=== PATIENT | female | born 1990 | race Hispanic/Latino ===

== ENCOUNTER 2018-11-17 09:37 | Emergency (ER) | payer SELFPAY ==
[2018-11-17 10:10] LABS: Absolute Monocytes 0.4 K/uL (0.1-1.3); Absolute Neutrophil 3.3 K/uL (1.8-8.0); Basophils % 0.4 % (0-1.3); Eosinophils % 1.7 % (0-4.4); Hematocrit 37.5 % (36.0-45.0); Lymphocytes % 34.8 % (15.3-44.8); Monocytes % 6.9 % (3.3-12.3); RBC Red Blood Cell Count 4.46 M/uL (3.86-4.86)
--- NOTE | 2018-11-17 10:20 | RAD REPORT ---
EXAM DESCRIPTION: Christopher Single View11/17/2018 10:10 am CLINICAL HISTORY: Chest pain COMPARISON: none FINDINGS: The lungs appear clear of acute infiltrate. The heart is normal size IMPRESSION: No acute abnormalities displayed
[2018-11-17 10:55] LABS: ALT/SGPT 25 U/L (12-78); AST/SGOT 22 U/L (15-37); Albumin 3.7 g/dL (3.4-5.0); Alkaline Phosphatase 80 U/L (45-117); BUN Blood Urea Nitrogen 12 mg/dL (7-18); Bicarbonate 26 mmol/L (21-32); Bilirubin Direct < 0.1 mg/dL (0-0.2); Bilirubin Total 0.4 mg/dL (0.2-1.0); Glucose Level 95 mg/dL (74-106); Potassium 3.7 mmol/L (3.5-5.1); Protein, Total 7.8 g/dL (6.4-8.2); Sodium Level 142 mmol/L (136-145); Troponin (Emerg Dept Use Only) < 0.02 ng/mL (0.0-0.045)
--- NOTE | 2018-11-17 11:24 | ER ---
Nurse's Notes [facility] Name: Joselo Zuniga Age: 28 yrs Sex: Female : 1990 Arrival Date: 11/17/2018 Time: 09:42 Bed 8 Private MD: Diagnosis: Chest pain, unspecified Presentation: 11/17 09:51 Presenting complaint: EMS states: Ems states patient was at work when she was sitting ae4 down after sweeping and had sudden onset of blurred vision, nausea, dizziness and chest pain. Transition of care: patient was not received from another setting of care. Onset of symptoms was November 17, 2018. Risk Assessment: Do you want to hurt yourself or someone else? Patient reports no desire to harm self or others. Initial Sepsis Screen: Does the patient meet any 2 criteria? No. Patient's initial sepsis screen is negative. Does the patient have a suspected source of infection? No. Patient's initial sepsis screen is negative. Care prior to arrival: 20 G to right AC, flushes and pulls blood easily. 09:51 Acuity: SHANDRA 3 ae4 09:51 Method Of Arrival: EMS: [facility] ae4 Triage Assessment: 09:45 General: Appears in no apparent distress. comfortable, obese, Behavior is cooperative, ae4 Talkative. Pain: Complains of pain in xyphoid area and mid-sternal area Pain does not radiate. EENT: No signs and/or symptoms were reported regarding the EENT system. Neuro: Level of Consciousness is awake, alert, obeys commands, Oriented to person, place, time, situation, Appropriate for age Speech is normal, Reports blurred vision Patient states she had a brief moment of nausea, blurred vision and dizziness. dizziness. Cardiovascular: Reports chest pain, nausea, shortness of breath, Heart tones S1 S2 present Patient's skin is warm and dry. Rhythm is regular. Respiratory: Airway is patent Respiratory effort is even, unlabored, Respiratory pattern is regular, symmetrical, Breath sounds are clear bilaterally. GI: Abdomen is round Bowel sounds present X 4 quads. Abd is soft and non tender X 4 quads. GI: Patient currently denies diarrhea, vomiting. : No signs and/or symptoms were reported regarding the genitourinary system. : Denies burning with urination. Derm: Skin is normal. Musculoskeletal: No signs and/or symptoms reported regarding the musculoskeletal system. 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 - Social history:: Smoking status: Patient uses tobacco products, 2.5 packs a week. - Ebola Screening: : Patient denies travel to an Ebola-affected area in the 21 days before illness onset. - Family history:: not pertinent. - Hospitalizations: : No recent hospitalization is reported. Screenin:54 Abuse screen: Denies threats or abuse. Nutritional screening: No deficits noted. ae4 Tuberculosis screening: No symptoms or risk factors identified. Fall Risk None identified. No fall in past 12 months (0 pts). No secondary diagnosis (0 pts). IV access (20 points). Ambulatory Aid- None/Bed Rest/Nurse Assist (0 pts). Gait- Normal/Bed Rest/Wheelchair (0 pts) Mental Status- Oriented to own ability (0 pts). Assessment: 10:01 Reassessment: Please see full triage assessment. Reassessment: medical technician at ae4 bedside. 10:19 Reassessment: Patient asked if safety employee from her employer was okay to enter exam ae4 room prior to allowing safety employee to enter. Patient states it is okay to allow fire safety inspector to remain in exam room. 10:55 Reassessment: Patient ambulated to restroom to urinate and provide urine sample at this ae4 time. Patient has a strong steady gait. 11:10 Reassessment: Provider at bedside discussing plan of care. ae4 11:54 Reassessment: Safety employee at bedside asked to step out while discussing discharge ae4 instructions with patient. Safety employee exited exam room and waited outside door to exam room and attempted to re-enter exam room. [employer] employee informed safety employee she is unable to enter exam room due to patient privacy. Vital Signs: 09:44 BP 152 / 91; Pulse 73; Resp 16; Temp 98(O); Pulse Ox 100% on R/A; Weight 125.19 kg (R); ae4 10:57 BP 118 / 66; Pulse 60; Resp 18; Pulse Ox 98% on R/A; ae4 ED Course: 09:42 Patient arrived in ED. rn 09:42 James Tillman MD is Attending Physician. rn 09:43 Brayan Godinez, RN is Primary Nurse. ae4 09:46 Maintain EMS IV. Dressing intact. Good blood return noted. Site clean \T\ dry. Gauge \T\ ms site: 20g. IV is intact, with good blood return, Flushed right antecubital. 09:46 front desk monitor on. Pulse ox on. NIBP on. ms 09:53 Triage completed. ae4 09:53 Arm band placed on right wrist. EKG completed in triage. Results shown to MD. ae4 09:54 Placed in gown. Bed in low position. Call light in reach. Side rails up X 1. Cardiac ae4 monitor on. Pulse ox on. NIBP on. 10:07 XRAY Chest (1 view) In Process Unspecified. EDMS 10:10 EKG done, by manager technical training. reviewed by James Tillman MD. at1 12:00 No provider procedures requiring assistance completed. IV discontinued, intact, ae4 bleeding controlled, No redness/swelling at site. Pressure dressing applied. Administered Medications: No medications were administered Outcome: 11:23 Discharge ordered by . rn 12:00 Discharged to home ambulatory, with significant other. ae4 12:00 Condition: stable 12:00 Discharge instructions given to patient, significant other, Instructed on discharge instructions, follow up and referral plans. Demonstrated understanding of instructions. 12:01 Patient left the ED. ae4 Signatures: Dispatcher [employer] EDWI Kaylan English ms, Roman, MD MD rn Gonzales, Amanda, mold shifter EKG Tat1 Brayan Godinez, RN RN ae4
--- NOTE | 2018-11-17 11:24 | EDPHYS ---
Physician Documentation [facility] Name: Joselo Zuniga Age: 28 yrs Sex: Female : 1990 Arrival Date: 11/17/2018 Time: 09:42 Bed 8 Private MD: ED Physician James Tillman HPI: 11/17 09:59 This 28 yrs old Female presents to ER via EMS with complaints of Chest Pain. rn 09:59 The patient or guardian reports chest pain that is located primarily in the substernal rn area. 10:22 The pain does not radiate. Associated signs and symptoms: The patient has no apparent rn associated signs or symptoms, Pertinent negatives: abdominal pain, diaphoresis, headache, lower extremity swelling, near syncope, palpitations, shortness of breath, syncope, vomiting. The chest pain is described as squeezing. Duration: The patient or guardian reports a single episode, that is now resolved. Modifying factors: The symptoms are alleviated by nothing. the symptoms are aggravated by nothing. Severity of pain: At its worst the pain was mild in the emergency department the pain has improved. The patient has not experienced similar symptoms in the past. REports chest pain, at work, was doing mild cleaning, denies stimulants, no family hx of early cardiac problems, no fever/cough/sob. No hx of dvt/pe, no recent trauma. Not doing anything out of the ordinary. Better now without intervention. Reports got lightheaded, no syncope, and did not feel heart race. No hx of recurrent syncope. Has not passed out in 10 years.. 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 - Social history:: Smoking status: Patient uses tobacco products, 2.5 packs a week. - Ebola Screening: : Patient denies travel to an Ebola-affected area in the 21 days before illness onset. - Family history:: not pertinent. - Hospitalizations: : No recent hospitalization is reported. ROS: 10:22 Constitutional: Negative for fever, chills, and weight loss, Eyes: Negative for injury, rn pain, redness, and discharge, Neck: Negative for injury, pain, and swelling, Cardiovascular: Negative for palpitations, and edema, Respiratory: Negative for shortness of breath, cough, wheezing, and pleuritic chest pain, Abdomen/GI: Negative for abdominal pain, nausea, vomiting, diarrhea, and constipation, MS/Extremity: Negative for injury and deformity, Skin: Negative for injury, rash, and discoloration, Neuro: Negative for headache, weakness, numbness, tingling, and seizure. Exam: 10:22 Constitutional: This is a well developed, well nourished patient who is awake, alert, rn and in no acute distress. Sitting in stretcher, legs crossed, comfortable. Head/Face: Normocephalic, atraumatic. Neck: Trachea midline, no masses palpated Cardiovascular: Regular rate and rhythm with a normal S1 and S2. No gallops, murmurs, or rubs. No JVD. No pulse deficits. Respiratory: Lungs have equal breath sounds bilaterally, clear to auscultation. No increased work of breathing, no retractions or nasal flaring. Abdomen/GI: soft, non-tender MS/ Extremity: Pulses equal, no cyanosis. Neurovascular intact. Full, normal range of motion. Equal circumference. Neuro: Awake and alert, GCS 15, oriented to person, place, time, and situation. Cranial nerves II-XII grossly intact. Motor strength 5/5 in all extremities. Sensory grossly intact. Cerebellar exam normal. 11:00 ECG was reviewed by the Attending Physician. rn Vital Signs: 09:44 BP 152 / 91; Pulse 73; Resp 16; Temp 98(O); Pulse Ox 100% on R/A; Weight 125.19 kg (R); ae4 10:57 BP 118 / 66; Pulse 60; Resp 18; Pulse Ox 98% on R/A; ae4 MDM: 09:42 Patient medically screened. rn 11:18 Differential diagnosis: acute pericarditis, anxiety, chest wall pain, costochondritis, rn esophagitis, gastritis, gastroesophageal reflux disease (GERD), peptic ulcer disease, pericarditis, pleurisy, pneumonia, pneumothorax. Data reviewed: vital signs, nurses notes, lab test result(s), EKG, radiologic studies, plain films, and as a result, I will discharge patient. Counseling: I had a detailed discussion with the patient and/or guardian regarding: the historical points, exam findings, and any diagnostic results supporting the discharge/admit diagnosis, lab results, radiology results, the need for outpatient follow up, to return to the emergency department if symptoms worsen or persist or if there are any questions or concerns that arise at home. Special discussion: Based on the patient's history, exam, and Dx evaluation, there is no indication for emergent intervention or inpatient Tx. It is understood by the patient/guardian that if the Sx's persist or worsen they need to return immediately for re-evaluation. I discussed with the patient/guardian in detail that at this point there is no indication for admission to the hospital. It is understood, however, that if the symptoms persist or worsen the patient needs to return immediately for re-evaluation. Based on the history and exam findings, there is no indication for further emergent testing or inpatient evaluation. I discussed with the patient/guardian the need to see the change release manager for further evaluation of the symptoms. I discussed with the patient/guardian the need to see the primary care provider for further evaluation of the symptoms. 11:18 ED course: Trop neg, no ischemia on ECG, cxr neg, will dc home. Ambulatory to bathroom rn without difficulty, no new episodes of chest pain. . 11/17 09:43 Order name: Basic Metabolic Panel; Complete Time: 11:00 rn 11/17 09:43 Order name: CBC with Diff; Complete Time: 10:22 rn 11/17 09:43 Order name: LFT's; Complete Time: 11:00 rn 11/17 09:43 Order name: Troponin (emerg Dept Use Only); Complete Time: 11:00 rn 11/17 12:00 Order name: Urine Dipstick--Ancillary (enter results) bd 11/17 09:43 Order name: XRAY Chest (1 view); Complete Time: 10:22 rn 11/17 09:43 Order name: EKG; Complete Time: 09:46 rn 11/17 09:43 Order name: Cardiac monitoring; Complete Time: :45 rn 11/17 09:43 Order name: EKG - Nurse/Tech; Complete Time: :45 rn 11/17 09:43 Order name: IV Saline Lock; Complete Time: 09:45 rn 11/17 09:43 Order name: Labs collected and sent; Complete Time: :45 rn 11/17 09:43 Order name: O2 Per Protocol; Complete Time: :45 rn 11/17 12:00 Order name: Urine --Ancillary (enter results) bd 11/17 09:43 Order name: O2 Sat Monitoring; Complete Time: 09:45 rn 11/17 09:43 Order name: Urine Test (obtain specimen); Complete Time: 11:10 rn 11/17 09:43 Order name: Urine Dipstick-Ancillary (obtain specimen); Complete Time: 11:10 rn EC:00 Rate is 54 beats/min. Rhythm is regular. QRS [place] is Normal. [place] interval is normal. QRS rn interval is normal. No Q waves. T waves are Normal. No ST changes noted. Clinical impression: Sinus bradycardia. Interpreted by me. Reviewed by me. Administered Medications: No medications were administered Disposition: 11/17/18 11:23 Discharged to Home. Impression: Chest pain, unspecified. - Condition is Stable. - Discharge Instructions: Nonspecific Chest Pain. - Work release form, Medication Reconciliation Form, Thank You Letter, Antibiotic Education, Prescription Opioid Use form. - Follow up: Private Physician; When: As needed; Reason: Recheck today's complaints, Re-evaluation by your physician. - Problem is new. - Symptoms have improved. Signatures: Dispatcher [employer] EDMS James Tillman MD MD rn Elliott, Andrea, RN RN ae4 Corrections: (The following items were deleted from the chart) 12:01 11:23 11/17/2018 11:23 Discharged to Home. Impression: Chest pain, unspecified. ae4 Condition is Stable. Forms are Medication Reconciliation Form, Thank You Letter, Antibiotic Education, Prescription Opioid Use. Follow up: Private Physician; When: As needed; Reason: Recheck today's complaints, Re-evaluation by your physician. Problem is new. Symptoms have improved. rn
[2018-11-17 12:25] LABS: Urine Blood TRACE (NEG); Urine Glucose NEGATIVE (NEG); Urine Protein 2+ (NEG); Urine Specific Gravity >1.030 (1.005-1.030)
--- NOTE | 2018-11-17 15:57 | EKG ---
Test Date: 2018-11-17 Test Time: 09:49:03 Senior Benefits Manager: JUAN MEASUREMENT RESULTS: Intervals: Rate: 54 ND: 134 QRSD: 80 QT: 394 QTc: 373 [place]: P: 35 ND: 134 QRS: 35 T: -4 INTERPRETIVE STATEMENTS: Sinus bradycardia with sinus arrhythmia Otherwise normal ECG No previous ECG available for comparison Electronically Signed On 11-17-18 15:56:07 CDT by Adryan Ibarra
== END 2018-11-17 12:01 | disposition home or self-care (01) ==
LOC: ER 09:37
DX: R07.9 Chest pain, unspecified (principal); F17.210 Nicotine dependence, cigarettes, uncomplicated
CPT/HCPCS: 36415; 71045; 80048; 80076; 81003; 81025; 84484; 85025; 93005; 99284